=== PATIENT | female | born 1960 | race Caucasian/White ===

== ENCOUNTER 2017-05-18 10:47 | Emergency (ER) | payer OTHER ==
[~2017-05-18] VITALS: Ht 167.6 cm; Wt 83.0 kg
[~2017-05-18 10:47] MED LIST: LEVO50TA4 PO; LIOT5TAB3 PO; OXYC-432 PO; PARO20TA3 PO; RITA20TA PO
[2017-05-18 10:49] VITALS: BP 160/89; PULSE 84; RESP 16; TEMP 98; O2SAT 96
--- NOTE | 2017-05-18 11:14 | PD ---
HPI Chief Complaint: Abdominal Pain Time Seen by Provider: 10:56 Travel History International Travel<30 days: No Contact w/Intl Traveler<30days: No Traveled to known affect area: No History of Present Illness HPI 57 y/o female presents with lower abdominal pain that is been present since Wednesday night. She states she had constipation but she took a laxative and was able to have a bowel movement that was normal. She denies any other concurrent complaints. Quality is crampy. Severity is severe. 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 She states that this is severe so she wanted make sure something else wasn't going on. She denies specific modifying factors. She denies migration of the pain. PFSH Past Medical History Hx Anticoagulant Therapy: No Cancer: No Diabetes: No Diminished Hearing: No Glaucoma: No Hepatitis: No Hiatal Hernia: No Hypertension: No Thyroid Disease: Yes ?: Not : 0 Past Surgical History Abdominal Surgery: Yes (CHOLECYSTECTOMY 2003) Cardiac Surgery: No Cholecystectomy: Yes Ear Surgery: No Endocrine Surgery: No Eye Surgery: No Genitourinary Surgery: No Gynecologic Surgery: No (HYSTERECTOMY 1987, LAP EVAL 2003) Hysterectomy: Yes Oral Surgery: No Pacemaker: No Thoracic Surgery: No Social History Alcohol Use: Yes (OCCASIONAL) Tobacco Use: No Allergies-Medications (Allergen,Severity, Reaction): Coded Allergies: No Known Allergies (Unverified Adverse Reaction, Unknown, 05/18/17) Reported Meds & Prescriptions Reported Meds & Active Scripts Active Reported Duloxetine DR (Duloxetine HCl) 30 Mg Capdr 30 Mg PO DAILY Oxycodone-Acetaminophen 5-325 mg Tab 2 Tab PO Q6H PRN Liothyronine (Liothyronine Sodium) 5 Mcg Tab 5 Mcg PO DAILY Levothyroxine (Levothyroxine Sodium) 50 Mcg Tab 50 Mcg PO DAILY Review of Systems Except as stated in HPI: all other systems reviewed are Neg Physical Exam Narrative GENERAL: Well-nourished, well-developed patient. well appearing SKIN: Warm and dry. HEAD: Normocephalic and atraumatic. EYES: No injection or drainage. ENT: No nasal drainage noted. NECK: Supple, trachea midline. CARDIOVASCULAR: Regular rate and rhythm RESPIRATORY: No increased effort. No accessory muscle use. GASTROINTESTINAL: Abdomen soft, mild tenderness diffusely, nondistended. No rebound NEUROLOGICAL: Awake and alert. Motor and sensory grossly within normal limits. Normal speech. Data Data Last Documented VS Vital Signs Date Time Temp Pulse Resp B/P (MAP) Pulse Ox O2 Delivery O2 Flow Rate FiO2 05/18/17 12:46 05/18/17 12:18 77 95 05/18/17 10:49 98.0 16 Orders Orders Urinalysis - C+S If Indicated (05/18/17 10:54) Complete Blood Count With Diff (05/18/17 11:03) Comprehensive Metabolic Panel (05/18/17 11:03) Lipase (05/18/17 11:03) Ct Abd/Pel W Iv Contrast(Rout) (05/18/17 ) Iv Access Insert/Monitor (05/18/17 11:03) Ketorolac Inj (Toradol Inj) (05/18/17 11:15) Iohexol 350 Inj (Omnipaque 350 Inj) (05/18/17 11:57) Ed Discharge Order (05/18/17 12:15) Labs Laboratory Tests Test 05/18/17 11:00 White Blood Count 7.9 TH/MM3 Red Blood Count 4.46 MIL/MM3 Hemoglobin 13.4 GM/DL Hematocrit 39.3 % Mean Corpuscular Volume 88.0 FL Mean Corpuscular Hemoglobin 30.0 PG Mean Corpuscular Hemoglobin Concent 34.1 % Red Cell Distribution Width 12.3 % Platelet Count 318 TH/MM3 Mean Platelet Volume 7.3 FL Neutrophils (%) (Auto) 68.8 % Lymphocytes (%) (Auto) 24.9 % Monocytes (%) (Auto) 4.7 % Eosinophils (%) (Auto) 0.9 % Basophils (%) (Auto) 0.7 % Neutrophils # (Auto) 5.3 TH/MM3 Lymphocytes # (Auto) 2.0 TH/MM3 Monocytes # (Auto) 0.4 TH/MM3 Eosinophils # (Auto) 0.1 TH/MM3 Basophils # (Auto) 0.1 TH/MM3 CBC Comment DIFF FINAL Differential Comment Urine Collection Type CLEAN CATCH Urine Color STRAW Urine Turbidity CLEAR Urine pH 6.5 Urine Specific [place] 1.003 Urine Protein NEG mg/dL Urine Glucose (UA) NEG mg/dL Urine Ketones NEG mg/dL Urine Occult Blood NEG Urine Nitrite NEG Urine Bilirubin NEG Urine Leukocyte Esterase NEG Urine Squamous Epithelial Cells 0-5 /hpf Microscopic Urinalysis Comment CULT NOT INDICATED Urine Collection Time 1100 Blood Urea Nitrogen 9 MG/DL Creatinine 0.65 MG/DL Random Glucose 98 MG/DL Total Protein 7.0 GM/DL Albumin 3.4 GM/DL Calcium Level 9.0 MG/DL Alkaline Phosphatase 63 U/L Aspartate Amino Transf (AST/SGOT) 17 U/L Alanine Aminotransferase (ALT/SGPT) 21 U/L Total Bilirubin 0.3 MG/DL Sodium Level 141 MEQ/L Potassium Level 3.8 MEQ/L Chloride Level 104 MEQ/L Carbon Dioxide Level 30.9 MEQ/L Anion Gap 6 MEQ/L Estimat Glomerular Filtration Rate 95 ML/MIN Lipase 286 U/L MDM Medical Decision Making Medical Screen Exam Complete: Yes Emergency Medical Condition: Yes Medical Record Reviewed: Yes ([facility] confirmed, here 2016 with abdominal pain, normal ct, note reviewed) Interpretation(s) CBC & BMP Diagram 05/18/17 11:00 Total Protein 7.0, Albumin 3.4, Calcium Level 9.0, Alkaline Phosphatase 63, Aspartate Amino Transf (AST/SGOT) 17, Alanine Aminotransferase (ALT/SGPT) 21, Total Bilirubin 0.3 ct abdomen pelvis no emergent findings Differential Diagnosis UTI, chronic abdominal pain, stone, pancreatitis... Narrative Course Will check blood work, urinalysis, CT scan and dose with Toradol and reevaluate ed workup no acute, Patient denies any new complaints other then mild rash to hairline, all questions answered. Patient knows that follow up is incumbent on them and to return to the emergency room immediately if new or worsening symptoms develop. Patient given strict return precautions, vitals reviewed and are normal, agrees to further workup as an outpatient. Diagnosis Primary Impression: Abdominal pain Qualified Codes: R10.30 - Lower abdominal pain, unspecified Patient Instructions: General Instructions Additional Instructions: tylenol as needed, follow with primary this week, return with any emergent need Med/Other Pt SpecificInfo: No Change to Meds Disposition: 01 DISCHARGE HOME Condition: Stable Khalida Ortiz MD May 18, 2017 11:13
[2017-05-18] MEDS ORDERED: KETOROLAC TROMETHAMINE 30 MG/ML (IVP) VIAL IV PUSH ONE (11:15)
[2017-05-18] MEDS ORDERED: DULO1CAP2 PO (11:22)
[2017-05-18 11:32] LABS: BILIRUBIN, URINE NEG (NEG); BLOOD, URINE NEG (NEG); GLUCOSE,URINE NEG (NEG); KETONE, URINE NEG (NEG); NITRITE,URINE NEG (NEG); PH, URINE 6.5 (5.0-8.5); URINE LEUKOCYTE ESTERASE NEG (NEG)
[2017-05-18 11:38] LABS: AUTOMATED NEUTROPHIL # 5.3 TH/MM3 (1.8-7.7); BASOPHIL # 0.1 TH/MM3 (0-0.2); BASOPHIL % 0.7 % (0.0-2.0); CHLORIDE 104 MEQ/L (98-107); EOSINOPHIL # 0.1 TH/MM3 (0-0.4); EOSINOPHIL % 0.9 % (0.0-4.0); HEMATOCRIT 39.3 % (35.0-46.0); HEMOGLOBIN 13.4 GM/DL (11.6-15.3); LYMPH % 24.9 % (9.0-44.0); MEAN CORPUSCULAR HGB CONC 34.1 % (32.0-36.0); MEAN PLATELET VOLUME 7.3 FL (7.0-11.0); MONO % 4.7 % (0.0-8.0); MONOCYTE # 0.4 TH/MM3 (0-0.9); NEUT % 68.8 % (16.0-70.0); PLATELET COUNT 318 TH/MM3 (150-450); RED BLOOD COUNT 4.46 MIL/MM3 (4.00-5.30); RED CELL DISTRIBUTION WIDTH 12.3 % (11.6-17.2); SODIUM (NA) 141 MEQ/L (136-145); WHITE BLOOD COUNT 7.9 TH/MM3 (4.0-11.0)
[2017-05-18 11:39] LABS: URINE COLOR STRAW (YELLW/STRAW)
[2017-05-18 11:40] LABS: SQUAMOUS EPITHELIAL CELL URINE 0-5 /hpf (0-5)
[2017-05-18 11:43] LABS: ALBUMIN 3.4 GM/DL (3.4-5.0); BICARBONATE 30.9 MEQ/L (21.0-32.0); BLOOD UREA NITROGEN 9 MG/DL (7-18); GLUCOSE,RANDOM 98 MG/DL (74-106); LIPASE 286 U/L (73-393)
[2017-05-18 11:45] LABS: AST (GOT) 17 U/L (15-37)
[2017-05-18 11:46] LABS: ALT (GPT) 21 U/L (10-53); CREATININE 0.65 MG/DL (0.50-1.00); GLOMERULAR FILTRATION RATE 95 ML/MIN (>89)
[2017-05-18 11:47] LABS: TOTAL BILIRUBIN ADULT 0.3 MG/DL (0.2-1.0)
[2017-05-18 11:48] LABS: ALKALINE PHOSPHATASE 63 U/L (45-117)
[2017-05-18] MEDS ORDERED: IOHEXOL 350 MG/ML 10 ML VIAL (for RAD DIAG) IVCONTRAST ONE (11:57)
--- NOTE | 2017-05-18 12:10 | RADRPT ---
EXAM DATE/TIME: 05/18/2017 11:49 [facility] COMPARISON: CT ABDOMEN & PELVIS W CONTRAST, January 29, 2016, 6:08. INDICATIONS : Lower abdominal pain. IV CONTRAST: 90 cc Omnipaque 350 (iohexol) IV ORAL CONTRAST: No oral contrast ingested. RADIATION DOSE: 11.78 CTDIvol (mGy) MEDICAL HISTORY : Endometriosis. SURGICAL HISTORY : Cholecystectomy. Hysterectomy.Sinus surgery. ENCOUNTER: Initial ACUITY: 4 - 6 days PAIN SCALE: 8/10 LOCATION: lower quadrant TECHNIQUE: Volumetric scanning of the abdomen and pelvis was performed. Using automated exposure control and ad justment of the mA and/or kV according to patient size, radiation dose was kept as low as reasonably achievable to obtain optimal diagnostic quality images. DICOM format image data is available electro nically for review and comparison. FINDINGS: LOWER LUNGS: The visualized lower lungs are clear. LIVER: Homogeneous density without lesion. There is no dilation of the biliary tree. The patient is again n oted be status post cholecystectomy. SPLEEN: Normal size without lesion. PANCREAS: Within normal limits. KIDNEYS: Normal in size and shape. There is no mass, stone or hydronephrosis. ADRENAL GLANDS: Within normal limits. VASCULAR: There is no aortic aneurysm. BOWEL/MESENTERY: Diverticula are again noted greatest in the sigmoid colon. No oral contrast was given limiting the se nsitivity the exam for the detection of pathology. The terminal ileum appears unremarkable. There sev eral loops of nondilated air-containing small bowel in the pelvis with several small air-fluid levels . There is no free air or fluid.. ABDOMINAL WALL: Within normal limits. RETROPERITONEUM: There is no lymphadenopathy. BLADDER: No wall thickening or mass. REPRODUCTIVE: Within normal limits. INGUINAL: There is no lymphadenopathy or hernia. MUSCULOSKELETAL: Within normal limits for patient age. CONCLUSION: 1. Mild diverticulosis with no inflammatory change. 2. Mild nonspecific bowel gas pattern which may represent a mild ileus. 3. Status post cholecystectomy and hysterectomy. Ruy Corrigan MD on May 18, 2017 at 12:03 Board Certified Radiologist. This report was verified electronically.
[2017-05-18 12:18] VITALS: BP 148/81; PULSE 77; O2SAT 95
== END 2017-05-18 12:49 | disposition home or self-care (01) ==
LOC: PHED 10:47
DX: R10.30 Lower abdominal pain, unspecified (principal)
CPT/HCPCS: 74177; 80053; 81001; 83690; 85025; 96374; 99285; J1885; Q9967

== ENCOUNTER 2017-08-19 00:35 | Emergency (ER) | payer OTHER ==
[~2017-08-19 00:35] MED LIST changes: +DULO1CAP2 PO; -PARO20TA3 PO; -RITA20TA PO
[2017-08-19 00:39] VITALS: BP 140/93; PULSE 90; RESP 18; TEMP 97.3; O2SAT 99
[2017-08-19 01:19] VITALS: BP 123/69; PULSE 82; RESP 20; O2SAT 89; O2SAT 99
[2017-08-19 01:20] VITALS: RESP 20; O2SAT 94
[2017-08-19] MEDS ORDERED: LIDOCAINE VISCOUS 2% SOLN 15 ML UDC SWISH-SWAL ONE (01:45)
[2017-08-19] MEDS ORDERED: ALUMINUM/MAGNESIUM/SIMETH 30 ML CUP PO ONE (01:45)
[2017-08-19] MEDS ORDERED: diphenhydrAMINE HCL ELIXIR 12.5 MG/5 ML CUP PO ONE (01:45)
[2017-08-19] MEDS ORDERED: PANTOPRAZOLE SODIUM 40 MG VIAL IV PUSH ONE (01:45)
[2017-08-19] MEDS ORDERED: ONDANSETRON HCL 4 MG/2 ML VIAL IV PUSH ONE (01:45)
[2017-08-19] MEDS: RESP: IPRATROPIUM 0.5 MG/2.5 ML NEB NEB ONE ×2 (01:45→02:05)
--- NOTE | 2017-08-19 02:20 | RADRPT ---
EXAM DATE/TIME: 08/19/2017 01:44 [facility] COMPARISON: No previous studies available for comparison. INDICATIONS : Tightness in throat. Short of breath. MEDICAL HISTORY : None. SURGICAL HISTORY : None. ENCOUNTER: Initial ACUITY: 2 days PAIN SCORE: 6/10 LOCATION: Bilateral neck FINDINGS: Two view examination of the soft tissues of the neck demonstrates the hypopharyngeal airway to have a grossly normal configuration. The trachea is midline. No radiopaque foreign bodies are seen. There is mild atherosclerotic calcification evident of both carotid arteries. CONCLUSION: No acute abnormality demonstrated. Leroy Angeles MD on August 19, 2017 at 2:18 Board Certified Radiologist. This report was verified electronically.
--- NOTE | 2017-08-19 02:23 | RADRPT ---
EXAM DATE/TIME: 08/19/2017 01:48 [facility] COMPARISON: No previous studies available for comparison. INDICATIONS : Abdominal pain. Constipation. MEDICAL HISTORY : None. SURGICAL HISTORY : None. ENCOUNTER: Initial ACUITY: 2 days PAIN SCORE: 7/10 LOCATION: Bilateral lower quadrant FINDINGS: Supine and upright views of the abdomen were performed. The abdominal bowel gas pattern is normal. No air fluid levels are seen. No abnormal masses, calcifications, or organomegaly is seen. The visu alized lower lungs are clear. No evidence of free intraperitoneal gas. The osseous structures are u nremarkable. Moderate stool in the right side of the colon and mild to moderate stool elsewhere. CONCLUSION: Benign-appearing abdomen. Moderate stool in the colon. Leroy Angeles MD on August 19, 2017 at 2:21 Board Certified Radiologist. This report was verified electronically.
[2017-08-19] MEDS ORDERED: ESTR0.059 T-DERMAL (02:35)
[2017-08-19 03:14] LABS: ALKALINE PHOSPHATASE 77 U/L (45-117); TOTAL BILIRUBIN ADULT 0.4 MG/DL (0.2-1.0); TOTAL PROTEIN 7.7 GM/DL (6.4-8.2)
[2017-08-19 03:22] LABS: ALBUMIN 3.7 GM/DL (3.4-5.0); ALT (GPT) 33 U/L (10-53); AST (GOT) 48 U/L (15-37); BICARBONATE 27.7 MEQ/L (21.0-32.0); BLOOD UREA NITROGEN 17 MG/DL (7-18); CALCIUM 9.8 MG/DL (8.5-10.1); CHLORIDE 106 MEQ/L (98-107); CREATININE 0.78 MG/DL (0.50-1.00); GLOMERULAR FILTRATION RATE 77 ML/MIN (>89); GLUCOSE,RANDOM 92 MG/DL (74-106); SODIUM (NA) 139 MEQ/L (136-145)
--- NOTE | 2017-08-19 03:42 | PD ---
HPI Chief Complaint: Chest Pain Time Seen by Provider: 01:01 Travel History International Travel<30 days: No Contact w/Intl Traveler<30days: No Traveled to known affect area: No History of Present Illness HPI Patient is a 57-year-old female who was taking a Serbian herbal powder that she just got from her guest services ambassador. She took a scoop fall and mixed it with water and it dissolve it well she says drank at about 8:00 went to bed around 9:00 and woke up at 11:00 severe reactive airway feeling short of breath coughing she says she thinks she vomited she is not sure if she vomited but she comes in with a burning horrible sensation in her throat and she is worried that she is injured her airway. Patient has no stridor no shortness of breath no other symptoms at this time she is mainly concerned of the fact that she vomited and what this her may have done to her larynx and airway. No wheezing no stridor no respiratory distress PFSH Past Medical History Hx Anticoagulant Therapy: No Cancer: No Diabetes: No Diminished Hearing: No Gastrointestinal Disorders: Yes (chronic pain from abdominal scar tissue and adhesions) Glaucoma: No Hepatitis: No Hiatal Hernia: No Hypertension: No Respiratory: No Thyroid Disease: Yes ?: Not : 0 Past Surgical History Abdominal Surgery: Yes (CHOLECYSTECTOMY 2003) Cardiac Surgery: No Cholecystectomy: Yes Ear Surgery: No Endocrine Surgery: No Eye Surgery: No Genitourinary Surgery: No Hysterectomy: Yes Oral Surgery: No Pacemaker: No Thoracic Surgery: No Other Surgery: Yes Social History Alcohol Use: Yes (OCCASIONAL) Tobacco Use: No Allergies-Medications (Allergen,Severity, Reaction): Coded Allergies: No Known Allergies (Unverified Adverse Reaction, Unknown, 05/18/17) morphine (Verified Adverse Reaction, Unknown, 08/19/17) vomiting Reported Meds & Prescriptions Reported Meds & Active Scripts Active Zofran Odt (Ondansetron Odt) 4 Mg Tab 4 Mg SL Q6HR PRN Magic Mouthwash Pediatric/Adult Liq (Lidocaine/Diphenhydr/Alum/Mg/Simeth) 60 Ml Susp 5 Ml SWISH-SWAL ACHS Each 5mL contains: Diphenydramine 4.5mg, Viscous Lidocaine 2% 10mg, Maalox Advanced Regular Strength 2.7ml Reported [place] Patch 84 HR (Estradiol) 0.05 Mg/24 Hr Patch 1 Patch T-DERMAL 2XWEEK Remove old patch and discard when new patch being placed. Change same 2 days each week. Liothyronine (Liothyronine Sodium) 5 Mcg Tab 5 Mcg PO DAILY Levothyroxine (Levothyroxine Sodium) 50 Mcg Tab 50 Mcg PO DAILY Review of Systems Except as stated in HPI: all other systems reviewed are Neg Respiratory: Positive: Cough, Shortness of Breath Physical Exam Narrative GENERAL: Awake alert no signs of respiratory distress SKIN: Warm and dry. HEAD: Atraumatic. Normocephalic. EYES: Pupils equal and round. No scleral icterus. No injection or drainage. ENT: No nasal bleeding or discharge. Mucous membranes pink and moist. NECK: Trachea midline. No JVD. No stridor auscultated CARDIOVASCULAR: Regular rate and rhythm. RESPIRATORY: No accessory muscle use. Clear to auscultation. Breath sounds equal bilaterally. No wheeze in all myers no signs of aspiration nor reactive airway GASTROINTESTINAL: Abdomen soft, non-tender, nondistended. Hepatic and splenic margins not palpable. MUSCULOSKELETAL: Extremities without clubbing, cyanosis, or edema. No obvious deformities. NEUROLOGICAL: Awake and alert. No obvious cranial nerve deficits. Motor grossly within normal limits. Five out of 5 muscle strength in the arms and legs. Normal speech. PSYCHIATRIC: Appropriate mood and affect; insight and judgment normal. Data Data Last Documented VS Vital Signs Date Time Temp Pulse Resp B/P (MAP) Pulse Ox O2 Delivery O2 Flow Rate FiO2 08/19/17 03:54 08/19/17 01:19 82 20 99 Room Air 08/19/17 00:39 97.3 Orders Orders Complete Blood Count With Diff (08/19/17 01:28) Comprehensive Metabolic Panel (08/19/17 01:28) Soft Tissue Neck (08/19/17 ) Abdomen, Flat & Upright (08/19/17 ) Pantoprazole Inj (Protonix Inj) (08/19/17 01:45) Ondansetron Inj (Zofran Inj) (08/19/17 01:45) Ipratropium Neb (Atrovent Neb) (08/19/17 01:45) Al-Mag Hy-Si 40-40-4 Mg/Ml Liq (Mag-Al P (08/19/17 01:45) Lidocaine 2% Viscous (Xylocaine 2% Visco (08/19/17 01:45) Diphenhydramine Liq (Benadryl Liq) (08/19/17 01:45) Ed Discharge Order (08/19/17 03:47) Labs Laboratory Tests Test 08/19/17 02:37 Blood Urea Nitrogen 17 MG/DL Creatinine 0.78 MG/DL Random Glucose 92 MG/DL Total Protein 7.7 GM/DL Albumin 3.7 GM/DL Calcium Level 9.8 MG/DL Alkaline Phosphatase 77 U/L Aspartate Amino Transf (AST/SGOT) 48 U/L Alanine Aminotransferase (ALT/SGPT) 33 U/L Total Bilirubin 0.4 MG/DL Sodium Level 139 MEQ/L Potassium Level 5.1 MEQ/L Chloride Level 106 MEQ/L Carbon Dioxide Level 27.7 MEQ/L Anion Gap 5 MEQ/L Estimat Glomerular Filtration Rate 77 ML/MIN MDM Medical Decision Making Medical Screen Exam Complete: Yes Emergency Medical Condition: Yes Differential Diagnosis Allergic reaction aspiration pneumonia reactive airway acid reflux with anxiety reaction other Narrative Course Patient is lateral soft tissue neck no findings normal epiglottis normal airway. Abdomen x-rays normal no signs of small bowel obstruction no air-fluid levels normal bowel pattern. Patient is given a GI cocktail with Benadryl gargle and swallow it helps alleviate her symptoms and she feels much better and is discharged home with the same prescription to take every 6 hours if her symptoms return Diagnosis Primary Impression: Drug reaction Qualified Codes: T88.7XXA - Unspecified adverse effect of drug or medicament, initial encounter Additional Impression: Reflux gastritis Patient Instructions: Adverse Drug Reaction (ED), General Allergic Reaction (ED ), General Instructions Scripts Ondansetron Odt (Zofran Odt) 4 Mg Tab 4 MG SL Q6HR Y for Nausea/Vomiting, #10 TAB 0 Refills Prov: José Miguel Mahan MD 08/19/17 Obtixatfslwcxsg-Pbyayetjb-Loz-Alum-Simeth Liq (Magic Mouthwash Pediatric/Adult Liq) 60 Ml Susp 5 ML SWISH-SWAL ACHS for Mouth sores, #100 ML 0 Refills Each 5mL contains: Diphenydramine 4.5mg, Viscous Lidocaine 2% 10mg, Maalox Advanced Regular Strength 2.7ml Prov: José Miguel Mahan MD 08/19/17 José Miguel Mahan MD Aug 19, 2017 03:42
[2017-08-19] MEDS ORDERED: MAGICPED SWISH-SWAL (03:44)
[2017-08-19] MEDS ORDERED: ZOFR4TAB3 SL (03:45)
--- NOTE | 2017-08-19 13:31 | EKG ---
Date Performed: 08/19/2017 Time Performed: 01:14:13 PTAGE: 57 years EKG: Sinus rhythm INCOMPLETE RIGHT BUNDLE BRANCH BLOCK BORDERLINE ECG Since the PREVIOUS TRACING , no significant change noted PREVIOUS TRACING 01/29/2016 05.18.00 DOCTOR: Vernon Maravilla Interpretating Date/Time 08/19/2017 13:30:26
== END 2017-08-19 04:11 | disposition home or self-care (01) ==
LOC: NEPE 00:35
DX: T88.7XXA Unspecified adverse effect of drug or medicament, initial encounter (principal); K29.60 Other gastritis without bleeding; R05 Cough; R07.0 Pain in throat; R11.10 Vomiting, unspecified; R94.31 Abnormal electrocardiogram [ECG] [EKG]; E07.9 Disorder of thyroid, unspecified; Z87.19 Personal history of other diseases of the digestive system
CPT/HCPCS: 70360; 74019; 80053; 93005; 96374; 96375; 99285; C9113; J2405; J7644